=== PATIENT | female | born 1960 | race Caucasian/White ===

== ENCOUNTER 2020-10-08 09:35 | Emergency (ER) | payer BC, OTHER ==
[~2020-10-08] VITALS: Ht 162.6 cm; Wt 108.0 kg
[2020-10-08 09:35] VITALS: BP_SYST 150
--- NOTE | 2020-10-08 09:35 | NUR ---
BROUGHT BACK TO BED #8 AND TRIAGED. REPORT GIVEN TO AMBER
--- NOTE | 2020-10-08 09:40 | NUR ---
PT CAME IN FROM HOME FOR MID ABD PAIN THAT STARTED YESTERDAY NIGHT. REPORTS THIS WEEKEND "I ATE BAD AND HAD MEAT WHICH I NORMALLY DON'T DO". REPORTS HAVING VERY SMALL BM BUT FEELS LIKE SHE HAS NOT BEEN ABLE TO HAVE A NORMAL BM. SHE IS AMBULATORY, [place] CHOUDHARY Addendum: 10/08/20 at 1005 by [email or web address] PT CAME IN FROM HOME FOR MID ABD PAIN THAT STARTED YESTERDAY NIGHT. REPORTS THIS WEEKEND "I ATE BAD AND HAD MEAT WHICH I NORMALLY DON'T DO". REPORTS HAVING VERY SMALL BM BUT FEELS LIKE SHE HAS NOT BEEN ABLE TO HAVE A NORMAL BM. SHE REPORTS HAVING N/V. SHE IS AMBULATORY, KENRICK V/S NAHOMI
--- NOTE | 2020-10-08 09:51 | NUR ---
ER DR. DENT AT THE [facility] EXAMINING PT
--- NOTE | 2020-10-08 09:55 | NUR ---
PT AMBULATED TO BATHROOM AND VOIDED, SPECIMEN COLLECTED AND SENT TO LAB
[2020-10-08] MEDS ORDERED: ONDANSETRON 4 MG ODT TAB PO ONE (10:00)
[2020-10-08] MEDS ORDERED: MAG HYDROX/AL HYDROX/SIMETH 30 ML, DICYCLOMINE HCL 20 MG, LIDOCAINE VISCOUS 2% 15ML (PO... PO ONE ×3 (10:00)
--- NOTE | 2020-10-08 10:01 | NUR ---
PT AMBULATED TO XRAY WITH STAFF
[2020-10-08] MEDS ORDERED: MAG-AL HYDROX/SIMETH 30 ML UDC ONE (10:09)
[2020-10-08] MEDS ORDERED: LIDOCAINE VISCOUS 2%, 15 ML UDC ONE (10:09)
[2020-10-08] MEDS ORDERED: DICYCLOMINE HCL 10 MG/5 ML SOLUTION ONE (10:09)
--- NOTE | 2020-10-08 10:14 | NUR ---
LAB AT THE BEDSIDE FOR BLOOD DRAW
[2020-10-08 10:28] LABS: BILIRUBIN,URINE NEGATIVE (NEGATIVE); BLOOD, URINE 1+ (NEGATIVE); COLOR,URINE YELLOW (YELLOW); GLUCOSE,URINE NEGATIVE (NEGATIVE); KETONES,URINE NEGATIVE (NEGATIVE); LEUKOCYTE ESTERASE ,URINE NEGATIVE (NEGATIVE); NITRITE, URINE NEGATIVE (NEGATIVE); PH,URINE 5.5 (5.0-8.0); PROTEIN URINE 1+ (NEGATIVE); UROBILINOGEN,URINE 0.2 (0.2-1.0)
--- NOTE | 2020-10-08 10:30 | NUR ---
Patient transported to radiology via WC, accompanied by STAFF.
[2020-10-08 10:32] LABS: HEMOGLOBIN 13.5 g/dL (12.0-16.0); RED CELL DISTRIBUTION WIDTH 12.9 % (9.0-15.0)
[2020-10-08 10:32] LABS: CLARITY/URINE SLIGHTLY HAZY (CLEAR)
[2020-10-08 10:38] LABS: CALCIUM 8.5 mg/dL (8.4-11.0); CREATININE 0.74 mg/dL (0.55-1.30); POTASSIUM 3.6 mmol/L (3.5-5.1)
[2020-10-08 10:42] LABS: BASOPHILS # (AUTO) 0.1 K/uL (0.0-0.2); BASOPHILS % (AUTO) 0.4 % (0.0-2.0); EOSINOPHILS % (AUTO) 0.1 % (0.0-4.0); LYMPHOCYTES # (AUTO) 1.6 K/uL (1.0-5.5); LYMPHOCYTES % (AUTO) 12.2 % (20.5-51.5); MEAN CORPUSCULAR HEMOGLOBIN 31 pg (27-31); MEAN CORPUSCULAR HGB CONC 34 % (32-36); MEAN CORPUSCULAR VOLUME 91 fL (79.0-98.0); MONOCYTES # (AUTO) 0.5 K/uL (0.0-1.0); MONOCYTES % (AUTO) 4.1 % (1.7-9.3); NEUTROPHILS # (AUTO) 10.6 K/uL (1.8-7.7); NEUTROPHILS % (AUTO) 83.2 % (40.0-70.0); PLATELET COUNT (AUTO) 216 K/uL (130-430); RED BLOOD CELL COUNT(AUTO) 4.41 MIL/uL (4.2-6.2); WHITE BLOOD COUNT (AUTO) 12.8 K/uL (4.8-10.8)
[2020-10-08 10:43] LABS: ALBUMIN 3.7 g/dL (3.4-4.8); TOTAL BILIRUBIN 0.4 mg/dL (0.0-1.0)
[2020-10-08 10:46] LABS: BACTERIA,URINE FEW /HPF (None Seen); WBC,URINE 0-3 /HPF (0-3)
[2020-10-08 10:47] LABS: MUCUS,URINE 1+ /LPF (None Seen)
[2020-10-08] MEDS ORDERED: KETOROLAC TROMETHAMINE 30 MG VIAL ONE (11:21)
[2020-10-08] MEDS ORDERED: KETOROLAC TROMETHAMINE 30 MG VIAL IM ONE (11:30)
--- NOTE | 2020-10-08 11:45 | NUR ---
PT RESTING IN BED, NO S/SX OF DISTRESS. V/S STABLE.
[2020-10-08] MEDS ORDERED: DICY10CA13 PO (12:57)
[2020-10-08 13:06] VITALS: BP_SYST 132
--- NOTE | 2020-10-08 13:08 | NUR ---
Patient given written and verbal discharge instructions and verbalizes understanding. ER MD discussed with patient the results and treatment provided. Patient in stable condition. ID arm band removed. Rx of DICYCLOMINE HCL given. Patient educated on pain management and to follow up with PMD. Pain Scale 0/10. Opportunity for questions provided and answered. Medication side effect fact sheet provided.
== END 2020-10-08 13:08 | disposition home or self-care (01) ==
LOC: SED 09:35
DX: R10.13 Epigastric pain (principal); R11.0 Nausea
CPT/HCPCS: 36415; 74018; 74176; 76376; 80053; 81000; 81025; 83690; 85025; 96372; 99285; J1885; J2001; Q0162